=== PATIENT | male | born 1960 | race Caucasian/White ===

== ENCOUNTER 2020-12-03 08:15 | Outpatient (RCR) | payer OTHER, MEDICAID, SELFPAY ==
--- NOTE | 2020-09-24 13:22 | PT.OIE ---
Current Diagnoses Pain in right shoulder (09/24/20) Past Medical History (Last Updated 12/09/17 @ 21:21 by Erica Sullivan) Seasonal allergies (~1975) Past Surgical History (Last Updated 12/09/17 @ 21:21 by Erica Sullivan) Anesthesia History of colonoscopy (~2015) History of elbow surgery (~2013) History of knee surgery (~1989) Visit Care Team Role Provider Type BEATA Joyce Attending Provider Advanced Assistant Men'S Soccer Coach Family Provider Primary Care Provider Referring Provider Specialty: Family Practice Address: [address] [place] [address] [place], [place], [facility] Email: [email or web address] Initial Evaluation PT-OP-A Visit Information Start: 09/24/20 08:05 Freq: Status: Active Protocol: Document 09/24/20 12:46 HH (Rec: 09/24/20 13:22 HH [email or web address]) Out-Patient Physical Therapy Visit Information Visit Information Visit Type Initial Evaluation Visit Start Time 09:00 Visit Stop Time 09:45 Total Visit Minutes 45 Visit Number 1/15 Number of BUDGET COORDINATOR Visits 0 Evaluation Information Evaluation Date 09/24/20 Precautions Precautions HTN PT-OP-B Current Condition Start: 09/24/20 08:05 Freq: Status: Active Protocol: Document 09/24/20 12:46 HH (Rec: 09/24/20 13:22 HH [email or web address]) Current Condition History of Current Condition Onset Date Feb, 2020 Current Complaints R shoulder panic, limited ROM History of Current Condition Brennen is a 60yo male here for his R shoulder started from February, with no known injury. His pain is 4-6/10 located at anterior part of R shoulder and it radiates down to his biceps occasionally, along with tingling and numbness to R hand. Pt has been having night pain consistently which significantly affects his sleep. He notices his ROM has been getting less especially reaching behind his back. Painful but close to full range with flexion/ abduction. 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 Treatment Goals Patient/Caregiver Goals 1. To regain full ROM of his R shoulder 2. to regain full strength of his R shoulder Current Functional Impairments (Reported) Functional Limitations- ADL's pain while reaching behind his back to art/doff jacket Functional Limitations- Work/School pain with pulling motion during work. Personal Factors Other Personal Factors That May Effect HTN Therapy/Recovery PT-OP-C Subjective Start: 09/24/20 08:05 Freq: Status: Active Protocol: Document 09/24/20 12:46 (Rec: 09/24/20 13:22 [email or web address]) Patient Questionnaires Quick Dash- Upper Extremity Quick Dash UE Score 61.4 Quick Dash UE Impairment 60 to 79% Impaired (Score 60- 79) OP-PT Pain Assessment Location R shoulder Pain Location Details anterior part of R shoulder Scale Used 4-6 Description Aching,Dull Frequency Frequent Variations/Patterns night time Pain Aggravating Factors Position,ADL's,Activity, Exercise Pain Alleviating Factors Inactivity PT-OP-E Functional Tests Start: 09/24/20 08:05 Freq: Status: Active Protocol: Document 09/24/20 12:46 (Rec: 09/24/20 13:22 [email or web address]) Functional Tests Apley's Scratch Test Action 1- Left no pain, WFL Action 1- Right pain at AC joint / GHJ, 75% ROM Action 2- Left T2 Action 2- Right C7 Action 3- Left T10 Action 3- Right L3 with pain PT-OP-F Manual Assessment Start: 09/24/20 08:05 Freq: Status: Active Protocol: Document 09/24/20 12:46 (Rec: 09/24/20 13:22 [email or web address]) Manual Assessments Soft Tissue Assessment Soft Tissue Mobility Assessment significant hypertonicity at R bicep belly, long head tendon mod hypertonicity at Pecs, infraspinatus and teres minor PT-OP-J Posture/Palpation/Skin Start: 09/24/20 08:05 Freq: Status: Active Protocol: Document 09/24/20 12:46 (Rec: 09/24/20 13:22 [email or web address]) Posture Evaluation Position Standing Shoulder Posture (R) Rounded PT-OP-K Range of Motion Start: 09/24/20 08:05 Freq: Status: Active Protocol: Document 09/24/20 12:46 (Rec: 09/24/20 13:22 [email or web address]) Cervical Spine Range of Motion Cervical Spine Active Degrees Comments WFL no pain noted no neurological signs noted. Shoulder Goniometric Range of Motion Shoulder Right Active Testing Position Standing Flexion 160 Extension 35 Abduction 165 External Rotation at 90 degrees 90 Abduction Internal Rotation 65 Comments anterior shoulder pain with extension and internal rotation Left Active Shoulder ROM WFL Yes Testing Position Standing Flexion 180 Extension 40 Abduction 180 External Rotation at 90 degrees 97 Abduction Internal Rotation 80 Shoulder ROM Limitations Shoulder ROM Limitations Soft Tissue Tightness,Pain PT-OP-L Special Tests Start: 09/24/20 08:05 Freq: Status: Active Protocol: Document 09/24/20 12:46 (Rec: 09/24/20 13:22 [email or web address]) Special Tests Cervical Spine Special Tests Foraminal Compression Test Results -veB Spurling's Test Test Results -veB Shoulder Special Tests Telfair Test Test Results +Ve R Grind Labrum Test Results -ve Neer Impingement Test Results +VE B AC Joint Compression Test Results -ve Drop Arm Rotator Cuff Test Results -ve Altamirano Bebeto Impingement Test Results +ve R Empty Can Test Results +ve R Comments slight pain noted Speed's Biceps Test Results +VE R Luna's Biceps Test Results +VE R PT-OP-M Strength Start: 09/24/20 08:05 Freq: Status: Active Protocol: Document 09/24/20 12:46 (Rec: 09/24/20 13:22 [email or web address]) Shoulder Strength Shoulder Manual Muscle Testing Right Flexion 4 Good Extension 4- Good- Abduction (C5) 4- Good- External Rotation 4- Good- Internal Rotation 4- Good- Left Flexion 5 Normal Extension 5 Normal Abduction (C5) 5 Normal Adduction 5 Normal External Rotation 5 Normal Internal Rotation 5 Normal PT-OP-Q Treatments Start: 09/24/20 08:05 Freq: Status: Active Protocol: Document 09/24/20 12:46 (Rec: 09/24/20 13:22 [email or web address]) Therapeutic Exercises Sidelying Exercises open book Side bilateral Reps/Minutes 5 x2 Comments for HEP Manual Therapy Treatment Soft Tissue Mobilization R biceps Body Location muscle belly and bicepital tendon Mobilization Type Myofascial Release,Sustained Pressure,Trigger Point Release Intensity/Depth Moderate Body Position Supine Comments signficiant hypetoncity at R bicep belly PT-OP-T Assessment and Plan Start: 09/24/20 08:05 Freq: Status: Active Protocol: Document 09/24/20 12:46 (Rec: 09/24/20 13:22 [email or web address]) Physical Therapy Assessment Rehab Potential Rehabilitation Potential Excellent Evaluation Complexity Number of Personal Factors/Comorbidities 0 Number of Body Systems Impaired 1-2 Clinical Presentation at Evaluation Stable Impairments Impairments Activity Tolerance,Functional Activities,Functional Mobility ,Pain,Posture,ROM,Soft Tissue Mobility,Strength Goals night pain Impairment pt is having R shoulder pain during sleep Short Term Goal (STG) pt will be able to sleep 3x/ week without being waken up by his R shoulder pain STG Duration 5 weeks Half-Way Goal (LTG) pt will be able to sleep through the entire week consistently without being waken up by his R shoulder pain LTG Duration 10 weeks ROM Impairment pt shows limited ER and IR Short Term Goal (STG) pt will regain 10 degrees of ER and IR to improve his ability to reach behind his back STG Duration 5 weeks Half-Way Goal (LTG) pt will regain 20 degrees of ER and IR to improve his ability to reach behind his back without discomfort LTG Duration 10 weeks quickdash Impairment pt scores 61 on quickdash Short Term Goal (STG) pt will show improvements in mobility and strength to score <50 on quickdash STG Duration 5 weeks Half-Way Goal (LTG) pt will show improvements in mobility and strength to score <30 on quickdash LTG Duration 10 weeks Assessment Summary Assessment Brennen is a 60 yo R hand dominant male here for his R shoulder pain started in February,. Upon assessment , Pt presents R bicipital tendonitis, along with shoulder impingement whose pain is mostly during reaching behind his back, extension and elbow flexion. There;s significant hypertoncity at R biceps belly but moderate for pecs and RTCs. Pt will benefit from skilled therapy to increase his overall ROM, strength, glenoidscapular stability and postural awareness in order for him to be able to complete dressing/ lifting without discomfort. Physical Therapy Plan Frequency and Duration Frequency of Treatment 1x/Week Duration of Treatment 10 weeks Plan of Care Start Date 09/24/20 Plan of Care End Date 12/08/20 Therapeutic Interventions Therapeutic Interventions Home Exercise Program,Joint Mobilizations,Manual Therapy, Neuromuscular Re-education, Patient/Caregiver Education, Self-Care/Home Management,Soft Tissue Mobilization,Taping, Therapeutic Activities, Therapeutic Exercises Modalities Biofeedback,Cold Pack/Ice Massage,Electric Stimulation, Hot Packs,Infrared Therapy, Iontophoresis,Traction- Mechanical,Ultrasound Next Visit Focus/Plan Next Note Type Treatment Note Next Visit Plan sleeper stretch for IR review open book scpa retraction STM on chest, bicep and RTCs
--- NOTE | 2020-09-24 13:22 | PT.OPPOC ---
Physical, Occupational & Speech Therapy At [facility] Current Diagnoses Pain in right shoulder (09/24/20) Visit Care Team Role Provider Type BEATA Joyce Attending Provider Advanced Wire Splicer Family Provider Primary Care Provider Referring Provider Specialty: Family Practice Address: [address] [place] [address], [facility] [place], [address] Email: [email or web address] Plan Of Care PT-OP-T Assessment and Plan Start: 09/24/20 08:05 Freq: Status: Active Protocol: Document 09/24/20 12:46 HH (Rec: 09/24/20 13:22 HH [email or web address]) Physical Therapy Assessment Rehab Potential Rehabilitation Potential Excellent Evaluation Complexity Number of Personal Factors/Comorbidities 0 Number of Body Systems Impaired 1-2 Clinical Presentation at Evaluation Stable Impairments Impairments Activity Tolerance,Functional Activities,Functional Mobility ,Pain,Posture,ROM,Soft Tissue Mobility,Strength Goals night pain Impairment pt is having R shoulder pain during sleep Short Term Goal (STG) pt will be able to sleep 3x/ week without being waken up by his R shoulder pain STG Duration 5 weeks Halfway Goal (LTG) pt will be able to sleep through the entire week consistently without being waken up by his R shoulder pain LTG Duration 10 weeks ROM Impairment pt shows limited ER and IR Short Term Goal (STG) pt will regain 10 degrees of ER and IR to improve his ability to reach behind his back STG Duration 5 weeks Hand Assembler Goal (LTG) pt will regain 20 degrees of ER and IR to improve his ability to reach behind his back without discomfort LTG Duration 10 weeks quickdash Impairment pt scores 61 on quickdash Short Term Goal (STG) pt will show improvements in mobility and strength to score <50 on quickdash STG Duration 5 weeks Halfway Goal (LTG) pt will show improvements in mobility and strength to score <30 on quickdash LTG Duration 10 weeks Assessment Summary Assessment Brennen is a 60 yo R hand dominant male here for his R shoulder pain started in February,. Upon assessment , Pt presents R bicipital tendonitis, along with shoulder impingement whose pain is mostly during reaching behind his back, extension and elbow flexion. There;s significant hypertoncity at R biceps belly but moderate for pecs and RTCs. Pt will benefit from skilled therapy to increase his overall ROM, strength, glenoidscapular stability and postural awareness in order for him to be able to complete dressing/ lifting without discomfort. Physical Therapy Plan Frequency and Duration Frequency of Treatment 1x/Week Duration of Treatment 10 weeks Plan of Care Start Date 09/24/20 Plan of Care End Date 12/08/20 Therapeutic Interventions Therapeutic Interventions Home Exercise Program,Joint Mobilizations,Manual Therapy, Neuromuscular Re-education, Patient/Caregiver Education, Self-Care/Home Management,Soft Tissue Mobilization,Taping, Therapeutic Activities, Therapeutic Exercises Modalities Biofeedback,Cold Pack/Ice Massage,Electric Stimulation, Hot Packs,Infrared Therapy, Iontophoresis,Traction- Mechanical,Ultrasound Next Visit Focus/Plan Next Note Type Treatment Note Next Visit Plan sleeper stretch for IR review open book scpa retraction STM on chest, bicep and RTCs Plan of Care Dates Plan of Care Start Date 09/24/20 Plan of Care End Date 12/08/20 Electronically Signed by: Kaye Kennedy PT 09/24/20 [id number] Please Sign and Return: I have reviewed this Plan of Care and certify that the skilled therapy services above are required to meet the patient?s needs. Physician Signature Date Printed Name and Credentials Clinical Instructor Signature Printed Name and Credentials
--- NOTE | 2020-10-01 10:29 | PT.OTN ---
Current Diagnoses Pain in right shoulder (10/01/20) Physical Therapy Treatment Note PT-OP-A Visit Information Start: 09/24/20 08:05 Freq: Status: Active Protocol: Document 10/01/20 09:40 HH (Rec: 10/01/20 10:29 [id number]) Out-Patient Physical Therapy Visit Information Visit Information Visit Type Treatment Note Visit Start Time 09:45 Visit Stop Time 10:30 Total Visit Minutes 45 Visit Number 2/15 Number of MIXER RUNNER Visits 0 PT-OP-B Current Condition Start: 09/24/20 08:05 Freq: Status: Active Protocol: Document 09/24/20 12:46 HH (Rec: 09/24/20 13:22 HH [email or web address]) Current Condition History of Current Condition Onset Date Feb, 2020 Current Complaints R shoulder panic, limited ROM History of Current Condition Brennen is a 60yo male here for his R shoulder started from February, with no known injury. His pain is 4-6/10 located at anterior part of R shoulder and it radiates down to his biceps occasionally, along with tingling and numbness to R hand. Pt has been having night pain consistently which significantly affects his sleep. He notices his ROM has been getting less especially reaching behind his back. Painful but close to full range with flexion/ abduction. 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 Treatment Goals Patient/Caregiver Goals 1. To regain full ROM of his R shoulder 2. to regain full strength of his R shoulder Current Functional Impairments (Reported) Functional Limitations- ADL's pain while reaching behind his back to art/doff jacket Functional Limitations- Work/School pain with pulling motion during work. Personal Factors Other Personal Factors That May Effect HTN Therapy/Recovery PT-OP-C Subjective Start: 09/24/20 08:05 Freq: Status: Active Protocol: Document 10/01/20 09:40 HH (Rec: 10/01/20 10:29 [id number]) OP-PT Subjective Patient Comments Patient Comments My shoulder feels better after last time but i accidentally pulled my biceps last night from lifting and i feel sore today. Tingling and numbness seem to be better. Patient Reported Progress Improving PT-OP-E Functional Tests Start: 09/24/20 08:05 Freq: Status: Active Protocol: Document 09/24/20 12:46 (Rec: 09/24/20 13:22 [email or web address]) Functional Tests Apley's Scratch Test Action 1- Left no pain, WFL Action 1- Right pain at AC joint / GHJ, 75% ROM Action 2- Left T2 Action 2- Right C7 Action 3- Left T10 Action 3- Right L3 with pain PT-OP-F Manual Assessment Start: 09/24/20 08:05 Freq: Status: Active Protocol: Document 09/24/20 12:46 (Rec: 09/24/20 13:22 [email or web address]) Manual Assessments Soft Tissue Assessment Soft Tissue Mobility Assessment significant hypertonicity at R bicep belly, long head tendon mod hypertonicity at Pecs, infraspinatus and teres minor PT-OP-J Posture/Palpation/Skin Start: 09/24/20 08:05 Freq: Status: Active Protocol: Document 09/24/20 12:46 (Rec: 09/24/20 13:22 [email or web address]) Posture Evaluation Position Standing Shoulder Posture (R) Rounded PT-OP-K Range of Motion Start: 09/24/20 08:05 Freq: Status: Active Protocol: Document 09/24/20 12:46 (Rec: 09/24/20 13:22 [email or web address]) Cervical Spine Range of Motion Cervical Spine Active Degrees Comments WFL no pain noted no neurological signs noted. Shoulder Goniometric Range of Motion Shoulder Right Active Testing Position Standing Flexion 160 Extension 35 Abduction 165 External Rotation at 90 degrees 90 Abduction Internal Rotation 65 Comments anterior shoulder pain with extension and internal rotation Left Active Shoulder ROM WFL Yes Testing Position Standing Flexion 180 Extension 40 Abduction 180 External Rotation at 90 degrees 97 Abduction Internal Rotation 80 Shoulder ROM Limitations Shoulder ROM Limitations Soft Tissue Tightness,Pain PT-OP-L Special Tests Start: 09/24/20 08:05 Freq: Status: Active Protocol: Document 09/24/20 12:46 (Rec: 09/24/20 13:22 [email or web address]) Special Tests Cervical Spine Special Tests Foraminal Compression Test Results -veB Spurling's Test Test Results -veB Shoulder Special Tests [place] Test Test Results +Ve R Grind Labrum Test Results -ve Neer Impingement Test Results +VE B AC Joint Compression Test Results -ve Drop Arm Rotator Cuff Test Results -ve Altamirano Bebeto Impingement Test Results +ve R Empty Can Test Results +ve R Comments slight pain noted Speed's Biceps Test Results +VE R Brettrbrianna's Biceps Test Results +VE R PT-OP-M Strength Start: 09/24/20 08:05 Freq: Status: Active Protocol: Document 09/24/20 12:46 HH (Rec: 09/24/20 13:22 HH [email or web address]) Shoulder Strength Shoulder Manual Muscle Testing Right Flexion 4 Good Extension 4- Good- Abduction (C5) 4- Good- External Rotation 4- Good- Internal Rotation 4- Good- Left Flexion 5 Normal Extension 5 Normal Abduction (C5) 5 Normal Adduction 5 Normal External Rotation 5 Normal Internal Rotation 5 Normal PT-OP-Q Treatments Start: 09/24/20 08:05 Freq: Status: Active Protocol: Document 10/01/20 09:40 HH (Rec: 10/01/20 10:29 [id number]) Therapeutic Exercises Sidelying Exercises sleeper stretch Reps/Minutes 15 sec x 5 Comments for HEP open book Side bilateral Reps/Minutes 5 x2 Comments for HEP Standing Exercises posterior capsule stretch Standing Exercise Name R arm add and IR Side right Reps/Minutes 10 sec x5 Comments for HEP scap retraction Side bilateral Reps/Minutes 10 x2 Comments for HEP Manual Therapy Treatment Soft Tissue Mobilization RTC Mobilization Type Myofascial Release,Sustained Pressure,Trigger Point Release Intensity/Depth Moderate Body Position Sidelying Comments infraspinatus and teresminor pecs Body Location minor and major Mobilization Type Myofascial Release,Sustained Pressure,Trigger Point Release Intensity/Depth Moderate Body Position Supine R biceps Body Location muscle belly and bicepital tendon Mobilization Type Myofascial Release,Sustained Pressure,Trigger Point Release Intensity/Depth Moderate Body Position Supine Comments signficiant hypetoncity at R bicep belly with active flexion and extension PT-OP-T Assessment and Plan Start: 09/24/20 08:05 Freq: Status: Active Protocol: Document 10/01/20 09:40 HH (Rec: 10/01/20 10:29 [email or web address]) Physical Therapy Assessment Goals night pain Impairment pt is having R shoulder pain during sleep Short Term Goal (STG) pt will be able to sleep 3x/ week without being waken up by his R shoulder pain STG Duration 5 weeks Chilling Hood Operator Goal (LTG) pt will be able to sleep through the entire week consistently without being waken up by his R shoulder pain LTG Duration 10 weeks ROM Impairment pt shows limited ER and IR Short Term Goal (STG) pt will regain 10 degrees of ER and IR to improve his ability to reach behind his back STG Duration 5 weeks Chilling Hood Operator Goal (LTG) pt will regain 20 degrees of ER and IR to improve his ability to reach behind his back without discomfort LTG Duration 10 weeks quickdash Impairment pt scores 61 on quickdash Short Term Goal (STG) pt will show improvements in mobility and strength to score <50 on quickdash STG Duration 5 weeks Chilling Hood Operator Goal (LTG) pt will show improvements in mobility and strength to score <30 on quickdash LTG Duration 10 weeks Assessment Summary Assessment pt reports improved symptoms since last visit but he strained his biceps yesterday from lifting. Pt eneida session good with focus on manual therapy. Added open book, scap retraction, sleeper stretch and posterior capsule stretch Physical Therapy Plan Frequency and Duration Frequency of Treatment 1x/Week Duration of Treatment 10 weeks Plan of Care Start Date 09/24/20 Plan of Care End Date 12/08/20 Therapeutic Interventions Therapeutic Interventions Home Exercise Program,Joint Mobilizations,Manual Therapy, Neuromuscular Re-education, Patient/Caregiver Education, Self-Care/Home Management,Soft Tissue Mobilization,Taping, Therapeutic Activities, Therapeutic Exercises Modalities Biofeedback,Cold Pack/Ice Massage,Electric Stimulation, Hot Packs,Infrared Therapy, Iontophoresis,Traction- Mechanical,Ultrasound Next Visit Focus/Plan Next Note Type Treatment Note Next Visit Plan sleeper stretch for IR review open book scpa retraction STM on chest, bicep and RTCs
--- NOTE | 2020-10-08 10:33 | PT.OTN ---
Current Diagnoses Pain in right shoulder (10/08/20) Physical Therapy Treatment Note PT-OP-A Visit Information Start: 09/24/20 08:05 Freq: Status: Active Protocol: Document 10/08/20 10:30 OF (Rec: 10/08/20 10:33 OF [email or web address]) Out-Patient Physical Therapy Visit Information Visit Information Visit Type Treatment Note Visit Start Time 10:00 Visit Stop Time 10:30 Total Visit Minutes 30 Visit Number 3/15 Number of SECURITY AUDITOR Visits 0 Evaluation Information Evaluation Date 09/24/20 Precautions Precautions HTN PT-OP-B Current Condition Start: 09/24/20 08:05 Freq: Status: Active Protocol: Document 09/24/20 12:46 HH (Rec: 09/24/20 13:22 HH [email or web address]) Current Condition History of Current Condition Onset Date Feb, 2020 Current Complaints R shoulder panic, limited ROM History of Current Condition Brennen is a 60yo male here for his R shoulder started from February, with no known injury. His pain is 4-6/10 located at anterior part of R shoulder and it radiates down to his biceps occasionally, along with tingling and numbness to R hand. Pt has been having night pain consistently which significantly affects his sleep. He notices his ROM has been getting less especially reaching behind his back. Painful but close to full range with flexion/ abduction. 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 Treatment Goals Patient/Caregiver Goals 1. To regain full ROM of his R shoulder 2. to regain full strength of his R shoulder Current Functional Impairments (Reported) Functional Limitations- ADL's pain while reaching behind his back to art/doff jacket Functional Limitations- Work/School pain with pulling motion during work. Personal Factors Other Personal Factors That May Effect HTN Therapy/Recovery PT-OP-C Subjective Start: 09/24/20 08:05 Freq: Status: Active Protocol: Document 10/08/20 10:30 OF (Rec: 10/08/20 10:33 OF [email or web address]) OP-PT Subjective Patient Comments Patient Comments My shoulder feels the same, because my back hurts. I fell off my work truck which hurt by L side and back Patient Reported Progress Same Patient Questionnaires Quick Dash- Upper Extremity Quick Dash UE Score 61.4 Quick Dash UE Impairment 60 to 79% Impaired (Score 60- 79) OP-PT Pain Assessment Location R shoulder Pain Location Details anterior part of R shoulder Scale Used 4-6 Description Aching,Dull Frequency Frequent Variations/Patterns night time Pain Aggravating Factors Position,ADL's,Activity, Exercise Pain Alleviating Factors Inactivity PT-OP-E Functional Tests Start: 09/24/20 08:05 Freq: Status: Active Protocol: Document 09/24/20 12:46 (Rec: 09/24/20 13:22 [email or web address]) Functional Tests Apley's Scratch Test Action 1- Left no pain, WFL Action 1- Right pain at AC joint / GHJ, 75% ROM Action 2- Left T2 Action 2- Right C7 Action 3- Left T10 Action 3- Right L3 with pain PT-OP-F Manual Assessment Start: 09/24/20 08:05 Freq: Status: Active Protocol: Document 09/24/20 12:46 (Rec: 09/24/20 13:22 [email or web address]) Manual Assessments Soft Tissue Assessment Soft Tissue Mobility Assessment significant hypertonicity at R bicep belly, long head tendon mod hypertonicity at Pecs, infraspinatus and teres minor PT-OP-J Posture/Palpation/Skin Start: 09/24/20 08:05 Freq: Status: Active Protocol: Document 09/24/20 12:46 (Rec: 09/24/20 13:22 [email or web address]) Posture Evaluation Position Standing Shoulder Posture (R) Rounded PT-OP-K Range of Motion Start: 09/24/20 08:05 Freq: Status: Active Protocol: Document 09/24/20 12:46 (Rec: 09/24/20 13:22 [email or web address]) Cervical Spine Range of Motion Cervical Spine Active Degrees Comments WFL no pain noted no neurological signs noted. Shoulder Goniometric Range of Motion Shoulder Right Active Testing Position Standing Flexion 160 Extension 35 Abduction 165 External Rotation at 90 degrees 90 Abduction Internal Rotation 65 Comments anterior shoulder pain with extension and internal rotation Left Active Shoulder ROM WFL Yes Testing Position Standing Flexion 180 Extension 40 Abduction 180 External Rotation at 90 degrees 97 Abduction Internal Rotation 80 Shoulder ROM Limitations Shoulder ROM Limitations Soft Tissue Tightness,Pain PT-OP-L Special Tests Start: 09/24/20 08:05 Freq: Status: Active Protocol: Document 09/24/20 12:46 (Rec: 09/24/20 13:22 [email or web address]) Special Tests Cervical Spine Special Tests Foraminal Compression Test Results -veB Spurling's Test Test Results -veB Shoulder Special Tests [place] Test Test Results +Ve R Grind Labrum Test Results -ve Neer Impingement Test Results +VE B AC Joint Compression Test Results -ve Drop Arm Rotator Cuff Test Results -ve Altamirano Bebeto Impingement Test Results +ve R Empty Can Test Results +ve R Comments slight pain noted Speed's Biceps Test Results +VE R Yergaelise's Biceps Test Results +VE R PT-OP-M Strength Start: 09/24/20 08:05 Freq: Status: Active Protocol: Document 09/24/20 12:46 HH (Rec: 09/24/20 13:22 [email or web address]) Shoulder Strength Shoulder Manual Muscle Testing Right Flexion 4 Good Extension 4- Good- Abduction (C5) 4- Good- External Rotation 4- Good- Internal Rotation 4- Good- Left Flexion 5 Normal Extension 5 Normal Abduction (C5) 5 Normal Adduction 5 Normal External Rotation 5 Normal Internal Rotation 5 Normal PT-OP-Q Treatments Start: 09/24/20 08:05 Freq: Status: Active Protocol: Document 10/08/20 10:30 OF (Rec: 10/08/20 10:33 OF [email or web address]) Therapeutic Exercises Sidelying Exercises sleeper stretch Reps/Minutes 15 sec x 5 Comments for HEP open book Side bilateral Reps/Minutes 5 x3 Comments for HEP Standing Exercises 1 Standing Exercise Name assisted int rotation behind back Side right Equipment Used stick Reps/Minutes 30 sec x5 posterior capsule stretch Standing Exercise Name R arm add and IR Side right Reps/Minutes 10 sec x5 Comments for HEP scap retraction Side bilateral Reps/Minutes 10 x2 Comments for HEP Manual Therapy Treatment Soft Tissue Mobilization RTC Mobilization Type Myofascial Release,Sustained Pressure,Trigger Point Release Intensity/Depth Moderate Body Position Sidelying Comments infraspinatus and teresminor pecs Body Location minor and major Mobilization Type Myofascial Release,Sustained Pressure,Trigger Point Release Intensity/Depth Moderate Body Position Supine R biceps Body Location muscle belly and bicepital tendon Mobilization Type Sustained Pressure,Trigger Point Release PT-OP-T Assessment and Plan Start: 09/24/20 08:05 Freq: Status: Active Protocol: Document 10/08/20 10:30 OF (Rec: 10/08/20 10:33 OF [email or web address]) Physical Therapy Assessment Rehab Potential Rehabilitation Potential Excellent Evaluation Complexity Number of Personal Factors/Comorbidities 0 Number of Body Systems Impaired 1-2 Clinical Presentation at Evaluation Stable Impairments Impairments Activity Tolerance,Functional Activities,Functional Mobility ,Pain,Posture,ROM,Soft Tissue Mobility,Strength Goals night pain Impairment pt is having R shoulder pain during sleep Short Term Goal (STG) pt will be able to sleep 3x/ week without being waken up by his R shoulder pain STG Duration 5 weeks Ward Helper Goal (LTG) pt will be able to sleep through the entire week consistently without being waken up by his R shoulder pain LTG Duration 10 weeks ROM Impairment pt shows limited ER and IR Short Term Goal (STG) pt will regain 10 degrees of ER and IR to improve his ability to reach behind his back STG Duration 5 weeks Ward Helper Goal (LTG) pt will regain 20 degrees of ER and IR to improve his ability to reach behind his back without discomfort LTG Duration 10 weeks quickdash Impairment pt scores 61 on quickdash Short Term Goal (STG) pt will show improvements in mobility and strength to score <50 on quickdash STG Duration 5 weeks Ward Helper Goal (LTG) pt will show improvements in mobility and strength to score <30 on quickdash LTG Duration 10 weeks Assessment Summary Assessment pt reports pain after falling at work. Shoulder is the same Pt requires redirection for sleeper stretch and open book. Good with scap retractions. Added AAROM internal rotation with extension using stick while seated/standing. Reduced tone in pecs/bieps Physical Therapy Plan Frequency and Duration Frequency of Treatment 1x/Week Duration of Treatment 10 weeks Plan of Care Start Date 09/24/20 Plan of Care End Date 12/08/20 Therapeutic Interventions Therapeutic Interventions Home Exercise Program,Joint Mobilizations,Manual Therapy, Neuromuscular Re-education, Patient/Caregiver Education, Self-Care/Home Management,Soft Tissue Mobilization,Taping, Therapeutic Activities, Therapeutic Exercises Modalities Biofeedback,Cold Pack/Ice Massage,Electric Stimulation, Hot Packs,Infrared Therapy, Iontophoresis,Traction- Mechanical,Ultrasound Next Visit Focus/Plan Next Note Type Treatment Note Next Visit Plan sleeper stretch for IR ( passive) pt doing both active review open book (active) scap retraction assisted IR and extension
--- NOTE | 2020-10-15 10:33 | PT.OTN ---
Current Diagnoses Pain in right shoulder (10/15/20) Physical Therapy Treatment Note PT-OP-A Visit Information Start: 09/24/20 08:05 Freq: Status: Active Protocol: Document 10/15/20 09:47 HH (Rec: 10/15/20 10:33 [id number]) Out-Patient Physical Therapy Visit Information Visit Information Visit Type Treatment Note Visit Start Time 09:47 Visit Stop Time 10:30 Total Visit Minutes 43 Visit Number 4/15 Number of RECTIFICATION PRINTER Visits 0 PT-OP-B Current Condition Start: 09/24/20 08:05 Freq: Status: Active Protocol: Document 09/24/20 12:46 HH (Rec: 09/24/20 13:22 [email or web address]) Current Condition History of Current Condition Onset Date Feb, 2020 Current Complaints R shoulder panic, limited ROM History of Current Condition Brennen is a 60yo male here for his R shoulder started from February, with no known injury. His pain is 4-6/10 located at anterior part of R shoulder and it radiates down to his biceps occasionally, along with tingling and numbness to R hand. Pt has been having night pain consistently which significantly affects his sleep. He notices his ROM has been getting less especially reaching behind his back. Painful but close to full range with flexion/ abduction. 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 Treatment Goals Patient/Caregiver Goals 1. To regain full ROM of his R shoulder 2. to regain full strength of his R shoulder Current Functional Impairments (Reported) Functional Limitations- ADL's pain while reaching behind his back to art/doff jacket Functional Limitations- Work/School pain with pulling motion during work. Personal Factors Other Personal Factors That May Effect HTN Therapy/Recovery PT-OP-C Subjective Start: 09/24/20 08:05 Freq: Status: Active Protocol: Document 10/15/20 09:47 HH (Rec: 10/15/20 10:33 [id number]) OP-PT Subjective Patient Comments Patient Comments I was doing pretty good lately but then my bicep has been sore this week and i dont know why since i didnt do anything out ordinary. Patient Reported Progress Same PT-OP-E Functional Tests Start: 09/24/20 08:05 Freq: Status: Active Protocol: Document 09/24/20 12:46 (Rec: 09/24/20 13:22 [email or web address]) Functional Tests Apley's Scratch Test Action 1- Left no pain, WFL Action 1- Right pain at AC joint / GHJ, 75% ROM Action 2- Left T2 Action 2- Right C7 Action 3- Left T10 Action 3- Right L3 with pain PT-OP-F Manual Assessment Start: 09/24/20 08:05 Freq: Status: Active Protocol: Document 09/24/20 12:46 (Rec: 09/24/20 13:22 [email or web address]) Manual Assessments Soft Tissue Assessment Soft Tissue Mobility Assessment significant hypertonicity at R bicep belly, long head tendon mod hypertonicity at Pecs, infraspinatus and teres minor PT-OP-J Posture/Palpation/Skin Start: 09/24/20 08:05 Freq: Status: Active Protocol: Document 09/24/20 12:46 (Rec: 09/24/20 13:22 [email or web address]) Posture Evaluation Position Standing Shoulder Posture (R) Rounded PT-OP-K Range of Motion Start: 09/24/20 08:05 Freq: Status: Active Protocol: Document 09/24/20 12:46 (Rec: 09/24/20 13:22 [email or web address]) Cervical Spine Range of Motion Cervical Spine Active Degrees Comments WFL no pain noted no neurological signs noted. Shoulder Goniometric Range of Motion Shoulder Right Active Testing Position Standing Flexion 160 Extension 35 Abduction 165 External Rotation at 90 degrees 90 Abduction Internal Rotation 65 Comments anterior shoulder pain with extension and internal rotation Left Active Shoulder ROM WFL Yes Testing Position Standing Flexion 180 Extension 40 Abduction 180 External Rotation at 90 degrees 97 Abduction Internal Rotation 80 Shoulder ROM Limitations Shoulder ROM Limitations Soft Tissue Tightness,Pain PT-OP-L Special Tests Start: 09/24/20 08:05 Freq: Status: Active Protocol: Document 09/24/20 12:46 (Rec: 09/24/20 13:22 [email or web address]) Special Tests Cervical Spine Special Tests Foraminal Compression Test Results -veB Spurling's Test Test Results -veB Shoulder Special Tests [place] Test Test Results +Ve R Grind Labrum Test Results -ve Neer Impingement Test Results +VE B AC Joint Compression Test Results -ve Drop Arm Rotator Cuff Test Results -ve [place]eto Impingement Test Results +ve R Empty Can Test Results +ve R Comments slight pain noted Speed's Biceps Test Results +VE R Luna's Biceps Test Results +VE R PT-OP-M Strength Start: 09/24/20 08:05 Freq: Status: Active Protocol: Document 09/24/20 12:46 HH (Rec: 09/24/20 13:22 HH [email or web address]) Shoulder Strength Shoulder Manual Muscle Testing Right Flexion 4 Good Extension 4- Good- Abduction (C5) 4- Good- External Rotation 4- Good- Internal Rotation 4- Good- Left Flexion 5 Normal Extension 5 Normal Abduction (C5) 5 Normal Adduction 5 Normal External Rotation 5 Normal Internal Rotation 5 Normal PT-OP-Q Treatments Start: 09/24/20 08:05 Freq: Status: Active Protocol: Document 10/15/20 09:47 HH (Rec: 10/15/20 10:33 [id number]) Cardio Equipment Upper Body Ergometer (UBE) Duration (Minutes) 5 Other 30 fwd, bwd, portable UBE Therapeutic Exercises Supine Exercises shoulder ER Equipment Used PVC Reps/Minutes 10 x 2 Comments R= 50% ROM less than L Sidelying Exercises open book Side bilateral Reps/Minutes 5 x2 Comments cues on thoracic rotation Standing Exercises 1 Standing Exercise Name assisted int rotation behind back Side right Equipment Used stick Reps/Minutes 30 sec x5 posterior capsule stretch Standing Exercise Name R arm add and IR Side right Reps/Minutes 10 sec x5 Comments for HEP scap retraction Side bilateral Reps/Minutes 10 x2 Comments for HEP Manual Therapy Treatment Soft Tissue Mobilization RTC Mobilization Type Myofascial Release,Sustained Pressure,Trigger Point Release Intensity/Depth Moderate Body Position Sidelying Comments slight tenderness at teresminor pecs Body Location minor and major Mobilization Type Myofascial Release,Sustained Pressure,Trigger Point Release Intensity/Depth Moderate Body Position Supine R biceps Body Location muscle belly and bicepital tendon Mobilization Type Sustained Pressure,Trigger Point Release Comments significant toncity at distal bicep PT-OP-T Assessment and Plan Start: 09/24/20 08:05 Freq: Status: Active Protocol: Document 10/15/20 09:47 HH (Rec: 10/15/20 10:33 [email or web address]) Physical Therapy Assessment Rehab Potential Rehabilitation Potential Excellent Evaluation Complexity Number of Personal Factors/Comorbidities 0 Number of Body Systems Impaired 1-2 Clinical Presentation at Evaluation Stable Impairments Impairments Activity Tolerance,Functional Activities,Functional Mobility ,Pain,Posture,ROM,Soft Tissue Mobility,Strength Goals night pain Impairment pt is having R shoulder pain during sleep Short Term Goal (STG) pt will be able to sleep 3x/ week without being waken up by his R shoulder pain STG Duration 5 weeks Sandwich Board Carrier Goal (LTG) pt will be able to sleep through the entire week consistently without being waken up by his R shoulder pain LTG Duration 10 weeks ROM Impairment pt shows limited ER and IR Short Term Goal (STG) pt will regain 10 degrees of ER and IR to improve his ability to reach behind his back STG Duration 5 weeks Residential Goal (LTG) pt will regain 20 degrees of ER and IR to improve his ability to reach behind his back without discomfort LTG Duration 10 weeks quickdash Impairment pt scores 61 on quickdash Short Term Goal (STG) pt will show improvements in mobility and strength to score <50 on quickdash STG Duration 5 weeks Residential Goal (LTG) pt will show improvements in mobility and strength to score <30 on quickdash LTG Duration 10 weeks Assessment Summary Assessment Pt reports improved pain at top of R shoulder but persistent pain at bicep area. He still has difficulty reaching behind his back and like to use shoulder hike for overhead movements. Reviewed all HEP and added supine ER today and pt eneida session well. Physical Therapy Plan Frequency and Duration Frequency of Treatment 1x/Week Duration of Treatment 10 weeks Plan of Care Start Date 09/24/20 Plan of Care End Date 12/08/20 Therapeutic Interventions Therapeutic Interventions Home Exercise Program,Joint Mobilizations,Manual Therapy, Neuromuscular Re-education, Patient/Caregiver Education, Self-Care/Home Management,Soft Tissue Mobilization,Taping, Therapeutic Activities, Therapeutic Exercises Modalities Biofeedback,Cold Pack/Ice Massage,Electric Stimulation, Hot Packs,Infrared Therapy, Iontophoresis,Traction- Mechanical,Ultrasound Next Visit Focus/Plan Next Note Type Treatment Note Next Visit Plan sleeper stretch for IR ( passive) pt doing both active review open book (active) scap retraction assisted IR and extension
--- NOTE | 2020-10-22 10:34 | PT.OTN ---
Current Diagnoses Pain in right shoulder (10/22/20) Physical Therapy Treatment Note PT-OP-A Visit Information Start: 09/24/20 08:05 Freq: Status: Active Protocol: Document 10/22/20 09:46 HH (Rec: 10/22/20 10:34 [id number]) Out-Patient Physical Therapy Visit Information Visit Information Visit Type Treatment Note Visit Start Time 09:46 Visit Stop Time 10:30 Total Visit Minutes 44 Visit Number 09/21 Number of SHORT ORDER FRY COOK Visits 0 PT-OP-B Current Condition Start: 09/24/20 08:05 Freq: Status: Active Protocol: Document 09/24/20 12:46 HH (Rec: 09/24/20 13:22 [email or web address]) Current Condition History of Current Condition Onset Date Feb, 2020 Current Complaints R shoulder panic, limited ROM History of Current Condition Brennen is a 60yo male here for his R shoulder started from February, with no known injury. His pain is 4-6/10 located at anterior part of R shoulder and it radiates down to his biceps occasionally, along with tingling and numbness to R hand. Pt has been having night pain consistently which significantly affects his sleep. He notices his ROM has been getting less especially reaching behind his back. Painful but close to full range with flexion/ abduction. 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 Treatment Goals Patient/Caregiver Goals 1. To regain full ROM of his R shoulder 2. to regain full strength of his R shoulder Current Functional Impairments (Reported) Functional Limitations- ADL's pain while reaching behind his back to art/doff jacket Functional Limitations- Work/School pain with pulling motion during work. Personal Factors Other Personal Factors That May Effect HTN Therapy/Recovery PT-OP-C Subjective Start: 09/24/20 08:05 Freq: Status: Active Protocol: Document 10/22/20 09:46 HH (Rec: 10/22/20 10:34 [id number]) OP-PT Subjective Patient Comments Patient Comments Im not doing not to bad this week. the towel stretch behind my back is really irritating my front of the shoulder. Patient Reported Progress Same PT-OP-E Functional Tests Start: 09/24/20 08:05 Freq: Status: Active Protocol: Document 09/24/20 12:46 HH (Rec: 09/24/20 13:22 [email or web address]) Functional Tests Apley's Scratch Test Action 1- Left no pain, WFL Action 1- Right pain at AC joint / GHJ, 75% ROM Action 2- Left T2 Action 2- Right C7 Action 3- Left T10 Action 3- Right L3 with pain PT-OP-F Manual Assessment Start: 09/24/20 08:05 Freq: Status: Active Protocol: Document 09/24/20 12:46 (Rec: 09/24/20 13:22 [email or web address]) Manual Assessments Soft Tissue Assessment Soft Tissue Mobility Assessment significant hypertonicity at R bicep belly, long head tendon mod hypertonicity at Pecs, infraspinatus and teres minor PT-OP-J Posture/Palpation/Skin Start: 09/24/20 08:05 Freq: Status: Active Protocol: Document 09/24/20 12:46 (Rec: 09/24/20 13:22 [email or web address]) Posture Evaluation Position Standing Shoulder Posture (R) Rounded PT-OP-K Range of Motion Start: 09/24/20 08:05 Freq: Status: Active Protocol: Document 09/24/20 12:46 (Rec: 09/24/20 13:22 [email or web address]) Cervical Spine Range of Motion Cervical Spine Active Degrees Comments WFL no pain noted no neurological signs noted. Shoulder Goniometric Range of Motion Shoulder Right Active Testing Position Standing Flexion 160 Extension 35 Abduction 165 External Rotation at 90 degrees 90 Abduction Internal Rotation 65 Comments anterior shoulder pain with extension and internal rotation Left Active Shoulder ROM WFL Yes Testing Position Standing Flexion 180 Extension 40 Abduction 180 External Rotation at 90 degrees 97 Abduction Internal Rotation 80 Shoulder ROM Limitations Shoulder ROM Limitations Soft Tissue Tightness,Pain PT-OP-L Special Tests Start: 09/24/20 08:05 Freq: Status: Active Protocol: Document 09/24/20 12:46 (Rec: 09/24/20 13:22 [email or web address]) Special Tests Cervical Spine Special Tests Foraminal Compression Test Results -veB Spurling's Test Test Results -veB Shoulder Special Tests [place] Test Test Results +Ve R Grind Labrum Test Results -ve Neer Impingement Test Results +VE B AC Joint Compression Test Results -ve Drop Arm Rotator Cuff Test Results -ve [place] Impingement Test Results +ve R Empty Can Test Results +ve R Comments slight pain noted Speed's Biceps Test Results +VE R Luna's Biceps Test Results +VE R PT-OP-M Strength Start: 09/24/20 08:05 Freq: Status: Active Protocol: Document 09/24/20 12:46 (Rec: 09/24/20 13:22 [email or web address]) Shoulder Strength Shoulder Manual Muscle Testing Right Flexion 4 Good Extension 4- Good- Abduction (C5) 4- Good- External Rotation 4- Good- Internal Rotation 4- Good- Left Flexion 5 Normal Extension 5 Normal Abduction (C5) 5 Normal Adduction 5 Normal External Rotation 5 Normal Internal Rotation 5 Normal PT-OP-Q Treatments Start: 09/24/20 08:05 Freq: Status: Active Protocol: Document 10/22/20 09:46 (Rec: 10/22/20 10:34 [id number]) Therapeutic Exercises Supine Exercises shoulder ER Equipment Used PVC Reps/Minutes 10 x 2 Comments R= 25% ROM less than L Sidelying Exercises open book Side bilateral Reps/Minutes 5 x2 Comments no cues needed Standing Exercises shoulder ER Side bilateral Equipment Used level 1 band Reps/Minutes 10 x 2 Comments no pain noted., for HEP posterior capsule stretch Standing Exercise Name R arm add and IR Side right Reps/Minutes 10 sec x5 Comments review with him today. Manual Therapy Treatment Soft Tissue Mobilization RTC Mobilization Type Myofascial Release,Sustained Pressure,Trigger Point Release Intensity/Depth Moderate Body Position Sidelying Comments minimal tenderness at teresminor pecs Body Location minor and major Mobilization Type Myofascial Release,Sustained Pressure,Trigger Point Release Intensity/Depth Moderate Body Position Supine R biceps Body Location muscle belly and bicepital tendon Mobilization Type Sustained Pressure,Trigger Point Release Comments significant toncity at distal bicep PT-OP-T Assessment and Plan Start: 09/24/20 08:05 Freq: Status: Active Protocol: Document 10/22/20 09:46 (Rec: 10/22/20 10:34 [id number]) Physical Therapy Assessment Goals night pain Impairment pt is having R shoulder pain during sleep Short Term Goal (STG) pt will be able to sleep 3x/ week without being waken up by his R shoulder pain STG Duration 5 weeks Radio Equipment Installer Goal (LTG) pt will be able to sleep through the entire week consistently without being waken up by his R shoulder pain LTG Duration 10 weeks ROM Impairment pt shows limited ER and IR Short Term Goal (STG) pt will regain 10 degrees of ER and IR to improve his ability to reach behind his back STG Duration 5 weeks Radio Equipment Installer Goal (LTG) pt will regain 20 degrees of ER and IR to improve his ability to reach behind his back without discomfort LTG Duration 10 weeks quickdash Impairment pt scores 61 on quickdash Short Term Goal (STG) pt will show improvements in mobility and strength to score <50 on quickdash STG Duration 5 weeks Radio Equipment Installer Goal (LTG) pt will show improvements in mobility and strength to score <30 on quickdash LTG Duration 10 weeks Assessment Summary Assessment Pt hasnt shown progress over the past week with pain during shoulder IR stretch. updated his HEP with shoulder ER focused with ROM and strengthening therex. Pt did not report of irritation during session. Also educated him to use ice if there's pain . Physical Therapy Plan Frequency and Duration Frequency of Treatment 1x/Week Duration of Treatment 10 weeks Plan of Care Start Date 09/24/20 Plan of Care End Date 12/08/20 Therapeutic Interventions Therapeutic Interventions Home Exercise Program,Joint Mobilizations,Manual Therapy, Neuromuscular Re-education, Patient/Caregiver Education, Self-Care/Home Management,Soft Tissue Mobilization,Taping, Therapeutic Activities, Therapeutic Exercises Modalities Biofeedback,Cold Pack/Ice Massage,Electric Stimulation, Hot Packs,Infrared Therapy, Iontophoresis,Traction- Mechanical,Ultrasound Next Visit Focus/Plan Next Note Type Treatment Note Next Visit Plan sleeper stretch for IR ( passive) pt doing both active review open book (active) scap retraction assisted IR and extension
--- NOTE | 2020-10-29 11:47 | PT.OTN ---
Current Diagnoses Pain in right shoulder (10/29/20) Physical Therapy Treatment Note PT-OP-A Visit Information Start: 09/24/20 08:05 Freq: Status: Active Protocol: Document 10/29/20 09:47 HH (Rec: 10/29/20 10:34 [id number]) Out-Patient Physical Therapy Visit Information Visit Information Visit Type Treatment Note Visit Start Time 09:46 Visit Stop Time 10:30 Total Visit Minutes 44 Visit Number 6 Number of YARN COMBER Visits 0 PT-OP-B Current Condition Start: 09/24/20 08:05 Freq: Status: Active Protocol: Document 09/24/20 12:46 HH (Rec: 09/24/20 13:22 [email or web address]) Current Condition History of Current Condition Onset Date Feb, 2020 Current Complaints R shoulder panic, limited ROM History of Current Condition Brennen is a 60yo male here for his R shoulder started from February, with no known injury. His pain is 4-6/10 located at anterior part of R shoulder and it radiates down to his biceps occasionally, along with tingling and numbness to R hand. Pt has been having night pain consistently which significantly affects his sleep. He notices his ROM has been getting less especially reaching behind his back. Painful but close to full range with flexion/ abduction. 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 Treatment Goals Patient/Caregiver Goals 1. To regain full ROM of his R shoulder 2. to regain full strength of his R shoulder Current Functional Impairments (Reported) Functional Limitations- ADL's pain while reaching behind his back to art/doff jacket Functional Limitations- Work/School pain with pulling motion during work. Personal Factors Other Personal Factors That May Effect HTN Therapy/Recovery PT-OP-C Subjective Start: 09/24/20 08:05 Freq: Status: Active Protocol: Document 10/29/20 09:47 HH (Rec: 10/29/20 10:34 [id number]) OP-PT Subjective Patient Comments Patient Comments Im able to sleep better, with a bit tingling and numnbness. However, the past few days started acting up again but not bad Patient Reported Progress Improving PT-OP-E Functional Tests Start: 09/24/20 08:05 Freq: Status: Active Protocol: Document 09/24/20 12:46 HH (Rec: 09/24/20 13:22 [email or web address]) Functional Tests Apley's Scratch Test Action 1- Left no pain, WFL Action 1- Right pain at AC joint / GHJ, 75% ROM Action 2- Left T2 Action 2- Right C7 Action 3- Left T10 Action 3- Right L3 with pain PT-OP-F Manual Assessment Start: 09/24/20 08:05 Freq: Status: Active Protocol: Document 09/24/20 12:46 (Rec: 09/24/20 13:22 [email or web address]) Manual Assessments Soft Tissue Assessment Soft Tissue Mobility Assessment significant hypertonicity at R bicep belly, long head tendon mod hypertonicity at Pecs, infraspinatus and teres minor PT-OP-J Posture/Palpation/Skin Start: 09/24/20 08:05 Freq: Status: Active Protocol: Document 09/24/20 12:46 (Rec: 09/24/20 13:22 [email or web address]) Posture Evaluation Position Standing Shoulder Posture (R) Rounded PT-OP-K Range of Motion Start: 09/24/20 08:05 Freq: Status: Active Protocol: Document 09/24/20 12:46 (Rec: 09/24/20 13:22 [email or web address]) Cervical Spine Range of Motion Cervical Spine Active Degrees Comments WFL no pain noted no neurological signs noted. Shoulder Goniometric Range of Motion Shoulder Right Active Testing Position Standing Flexion 160 Extension 35 Abduction 165 External Rotation at 90 degrees 90 Abduction Internal Rotation 65 Comments anterior shoulder pain with extension and internal rotation Left Active Shoulder ROM WFL Yes Testing Position Standing Flexion 180 Extension 40 Abduction 180 External Rotation at 90 degrees 97 Abduction Internal Rotation 80 Shoulder ROM Limitations Shoulder ROM Limitations Soft Tissue Tightness,Pain PT-OP-L Special Tests Start: 09/24/20 08:05 Freq: Status: Active Protocol: Document 09/24/20 12:46 (Rec: 09/24/20 13:22 [email or web address]) Special Tests Cervical Spine Special Tests Foraminal Compression Test Results -veB Spurling's Test Test Results -veB Shoulder Special Tests [place] Test Test Results +Ve R Grind Labrum Test Results -ve Neer Impingement Test Results +VE B AC Joint Compression Test Results -ve Drop Arm Rotator Cuff Test Results -ve [place] Impingement Test Results +ve R Empty Can Test Results +ve R Comments slight pain noted Speed's Biceps Test Results +VE R Luna's Biceps Test Results +VE R PT-OP-M Strength Start: 09/24/20 08:05 Freq: Status: Active Protocol: Document 09/24/20 12:46 HH (Rec: 09/24/20 13:22 HH [email or web address]) Shoulder Strength Shoulder Manual Muscle Testing Right Flexion 4 Good Extension 4- Good- Abduction (C5) 4- Good- External Rotation 4- Good- Internal Rotation 4- Good- Left Flexion 5 Normal Extension 5 Normal Abduction (C5) 5 Normal Adduction 5 Normal External Rotation 5 Normal Internal Rotation 5 Normal PT-OP-Q Treatments Start: 09/24/20 08:05 Freq: Status: Active Protocol: Document 10/29/20 09:47 HH (Rec: 10/29/20 10:34 [email or web address]) Therapeutic Exercises Supine Exercises shoulder ER Equipment Used PVC Reps/Minutes 10 x 2 Comments R= 25% ROM less than L Standing Exercises median nerve glide Side bilateral Reps/Minutes 8 mins Comments with head SB shoulder ER Side bilateral Equipment Used level 1 band Reps/Minutes 10 x 2 Comments no pain noted., for HEP Manual Therapy Treatment Soft Tissue Mobilization RTC Mobilization Type Myofascial Release,Sustained Pressure,Trigger Point Release Intensity/Depth Moderate Body Position Sidelying Comments minimal tenderness at teresminor pecs Body Location minor and major Mobilization Type Myofascial Release,Sustained Pressure,Trigger Point Release Intensity/Depth Moderate Body Position Supine Comments reduced tonicty noted. R biceps Body Location muscle belly and bicepital tendon Mobilization Type Sustained Pressure,Trigger Point Release Comments reduced toncity at distal bicep PT-OP-T Assessment and Plan Start: 09/24/20 08:05 Freq: Status: Active Protocol: Document 10/29/20 09:47 HH (Rec: 10/29/20 10:34 [id number]) Physical Therapy Assessment Goals night pain Impairment pt is having R shoulder pain during sleep Short Term Goal (STG) pt will be able to sleep 3x/ week without being waken up by his R shoulder pain STG Duration 5 weeks Long-Term Goal (LTG) pt will be able to sleep through the entire week consistently without being waken up by his R shoulder pain LTG Duration 10 weeks ROM Impairment pt shows limited ER and IR Short Term Goal (STG) pt will regain 10 degrees of ER and IR to improve his ability to reach behind his back STG Duration 5 weeks Long-Term Goal (LTG) pt will regain 20 degrees of ER and IR to improve his ability to reach behind his back without discomfort LTG Duration 10 weeks quickdash Impairment pt scores 61 on quickdash Short Term Goal (STG) pt will show improvements in mobility and strength to score <50 on quickdash STG Duration 5 weeks Long-Term Goal (LTG) pt will show improvements in mobility and strength to score <30 on quickdash LTG Duration 10 weeks Assessment Summary Assessment Pt shows improved ROM and pain . Added median nerve glide with head SB and pec door stretch. Will address shoulder IR stretch next week Physical Therapy Plan Frequency and Duration Frequency of Treatment 1x/Week Duration of Treatment 10 weeks Plan of Care Start Date 09/24/20 Plan of Care End Date 12/08/20 Therapeutic Interventions Therapeutic Interventions Home Exercise Program,Joint Mobilizations,Manual Therapy, Neuromuscular Re-education, Patient/Caregiver Education, Self-Care/Home Management,Soft Tissue Mobilization,Taping, Therapeutic Activities, Therapeutic Exercises Modalities Biofeedback,Cold Pack/Ice Massage,Electric Stimulation, Hot Packs,Infrared Therapy, Iontophoresis,Traction- Mechanical,Ultrasound Next Visit Focus/Plan Next Note Type Treatment Note Next Visit Plan sleeper stretch for IR ( passive) pt doing both active review open book (active) scap retraction assisted IR and extension
--- NOTE | 2020-11-05 10:34 | PT.OTN ---
Current Diagnoses Pain in right shoulder (11/05/20) Physical Therapy Treatment Note PT-OP-A Visit Information Start: 09/24/20 08:05 Freq: Status: Active Protocol: Document 11/05/20 09:39 HH (Rec: 11/05/20 10:34 [id number]) Out-Patient Physical Therapy Visit Information Visit Information Visit Type Treatment Note Visit Start Time 09:46 Visit Stop Time 10:30 Total Visit Minutes 44 Visit Number 7/15 Number of FELT PAD CUTTER Visits 0 PT-OP-B Current Condition Start: 09/24/20 08:05 Freq: Status: Active Protocol: Document 09/24/20 12:46 HH (Rec: 09/24/20 13:22 [email or web address]) Current Condition History of Current Condition Onset Date Feb, 2020 Current Complaints R shoulder panic, limited ROM History of Current Condition Brennen is a 60yo male here for his R shoulder started from February, with no known injury. His pain is 4-6/10 located at anterior part of R shoulder and it radiates down to his biceps occasionally, along with tingling and numbness to R hand. Pt has been having night pain consistently which significantly affects his sleep. He notices his ROM has been getting less especially reaching behind his back. Painful but close to full range with flexion/ abduction. 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 Treatment Goals Patient/Caregiver Goals 1. To regain full ROM of his R shoulder 2. to regain full strength of his R shoulder Current Functional Impairments (Reported) Functional Limitations- ADL's pain while reaching behind his back to art/doff jacket Functional Limitations- Work/School pain with pulling motion during work. Personal Factors Other Personal Factors That May Effect HTN Therapy/Recovery PT-OP-C Subjective Start: 09/24/20 08:05 Freq: Status: Active Protocol: Document 11/05/20 09:39 HH (Rec: 11/05/20 10:34 [id number]) OP-PT Subjective Patient Comments Patient Comments My tingling and numbness have been less since i tried the nerve glide. I got a little sore early last week then i felt pretty good until yesterday. I did something jarring work which gave that jolting sensation to my shoulder. But its not as bad as before. Patient Reported Progress Improving PT-OP-E Functional Tests Start: 09/24/20 08:05 Freq: Status: Active Protocol: Document 09/24/20 12:46 (Rec: 09/24/20 13:22 [email or web address]) Functional Tests Apley's Scratch Test Action 1- Left no pain, WFL Action 1- Right pain at AC joint / GHJ, 75% ROM Action 2- Left T2 Action 2- Right C7 Action 3- Left T10 Action 3- Right L3 with pain PT-OP-F Manual Assessment Start: 09/24/20 08:05 Freq: Status: Active Protocol: Document 09/24/20 12:46 (Rec: 09/24/20 13:22 [email or web address]) Manual Assessments Soft Tissue Assessment Soft Tissue Mobility Assessment significant hypertonicity at R bicep belly, long head tendon mod hypertonicity at Pecs, infraspinatus and teres minor PT-OP-J Posture/Palpation/Skin Start: 09/24/20 08:05 Freq: Status: Active Protocol: Document 09/24/20 12:46 (Rec: 09/24/20 13:22 [email or web address]) Posture Evaluation Position Standing Shoulder Posture (R) Rounded PT-OP-K Range of Motion Start: 09/24/20 08:05 Freq: Status: Active Protocol: Document 09/24/20 12:46 (Rec: 09/24/20 13:22 [email or web address]) Cervical Spine Range of Motion Cervical Spine Active Degrees Comments WFL no pain noted no neurological signs noted. Shoulder Goniometric Range of Motion Shoulder Right Active Testing Position Standing Flexion 160 Extension 35 Abduction 165 External Rotation at 90 degrees 90 Abduction Internal Rotation 65 Comments anterior shoulder pain with extension and internal rotation Left Active Shoulder ROM WFL Yes Testing Position Standing Flexion 180 Extension 40 Abduction 180 External Rotation at 90 degrees 97 Abduction Internal Rotation 80 Shoulder ROM Limitations Shoulder ROM Limitations Soft Tissue Tightness,Pain PT-OP-L Special Tests Start: 09/24/20 08:05 Freq: Status: Active Protocol: Document 09/24/20 12:46 (Rec: 09/24/20 13:22 [email or web address]) Special Tests Cervical Spine Special Tests Foraminal Compression Test Results -veB Spurling's Test Test Results -veB Shoulder Special Tests [place] Test Test Results +Ve R Grind Labrum Test Results -ve Neer Impingement Test Results +VE B AC Joint Compression Test Results -ve Drop Arm Rotator Cuff Test Results -ve [place] Bebeto Impingement Test Results +ve R Empty Can Test Results +ve R Comments slight pain noted Speed's Biceps Test Results +VE R Yerbrianna's Biceps Test Results +VE R PT-OP-M Strength Start: 09/24/20 08:05 Freq: Status: Active Protocol: Document 09/24/20 12:46 HH (Rec: 09/24/20 13:22 [email or web address]) Shoulder Strength Shoulder Manual Muscle Testing Right Flexion 4 Good Extension 4- Good- Abduction (C5) 4- Good- External Rotation 4- Good- Internal Rotation 4- Good- Left Flexion 5 Normal Extension 5 Normal Abduction (C5) 5 Normal Adduction 5 Normal External Rotation 5 Normal Internal Rotation 5 Normal PT-OP-Q Treatments Start: 09/24/20 08:05 Freq: Status: Active Protocol: Document 11/05/20 09:39 (Rec: 11/05/20 10:34 [id number]) Therapeutic Exercises Supine Exercises pec stretch Supine Exercise Name on foam roller Reps/Minutes 3 mins bicep curls Side right Reps/Minutes 10 x2 Comments cues on scap retraction shoulder ER Equipment Used PVC Reps/Minutes 10 x 2 Comments R= 25% ROM less than L Standing Exercises shoulder ER Side bilateral Equipment Used level 1 band Reps/Minutes 10 x 2 Comments no pain Manual Therapy Treatment Soft Tissue Mobilization RTC Mobilization Type Myofascial Release,Sustained Pressure,Trigger Point Release Intensity/Depth Moderate Body Position Sidelying Comments minimal tenderness at teresminor pecs Body Location minor and major Mobilization Type Myofascial Release,Sustained Pressure,Trigger Point Release Intensity/Depth Moderate Body Position Supine Comments increased tonicty noted today R biceps Body Location muscle belly and bicepital tendon Mobilization Type Sustained Pressure,Trigger Point Release Comments increased toncity at distal bicep Joint Mobilizations R GHJ Direction posterior glide Grade III Body Position Supine PT-OP-T Assessment and Plan Start: 09/24/20 08:05 Freq: Status: Active Protocol: Document 11/05/20 09:39 (Rec: 11/05/20 10:34 [id number]) Physical Therapy Assessment Goals night pain Impairment pt is having R shoulder pain during sleep Short Term Goal (STG) pt will be able to sleep 3x/ week without being waken up by his R shoulder pain STG Duration 5 weeks Residential Goal (LTG) pt will be able to sleep through the entire week consistently without being waken up by his R shoulder pain LTG Duration 10 weeks ROM Impairment pt shows limited ER and IR Short Term Goal (STG) pt will regain 10 degrees of ER and IR to improve his ability to reach behind his back STG Duration 5 weeks Edge Finisher Goal (LTG) pt will regain 20 degrees of ER and IR to improve his ability to reach behind his back without discomfort LTG Duration 10 weeks quickdash Impairment pt scores 61 on quickdash Short Term Goal (STG) pt will show improvements in mobility and strength to score <50 on quickdash STG Duration 5 weeks Residential Goal (LTG) pt will show improvements in mobility and strength to score <30 on quickdash LTG Duration 10 weeks Assessment Summary Assessment pt came in with shoulder soreness after having some jarring movements. However, his pain and ROM improved after manual therapy, his overall ER also improved. 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 Physical Therapy Plan Frequency and Duration Frequency of Treatment 1x/Week Duration of Treatment 10 weeks Plan of Care Start Date 09/24/20 Plan of Care End Date 12/08/20 Therapeutic Interventions Therapeutic Interventions Home Exercise Program,Joint Mobilizations,Manual Therapy, Neuromuscular Re-education, Patient/Caregiver Education, Self-Care/Home Management,Soft Tissue Mobilization,Taping, Therapeutic Activities, Therapeutic Exercises Modalities Biofeedback,Cold Pack/Ice Massage,Electric Stimulation, Hot Packs,Infrared Therapy, Iontophoresis,Traction- Mechanical,Ultrasound Next Visit Focus/Plan Next Note Type Treatment Note Next Visit Plan sleeper stretch for IR ( passive) pt doing both active review open book (active) scap retraction assisted IR and extension
--- NOTE | 2020-11-13 13:58 | PT.OTN ---
Current Diagnoses Pain in right shoulder (11/13/20) Physical Therapy Treatment Note PT-OP-A Visit Information Start: 09/24/20 08:05 Freq: Status: Active Protocol: Document 11/13/20 12:59 HH (Rec: 11/13/20 13:57 [id number]) Out-Patient Physical Therapy Visit Information Visit Information Visit Type Treatment Note Visit Start Time 13:07 Visit Stop Time 13:45 Total Visit Minutes 38 Visit Number 8/15 Number of WINDOWS SYSTEM ADMIN Visits 0 PT-OP-B Current Condition Start: 09/24/20 08:05 Freq: Status: Active Protocol: Document 09/24/20 12:46 HH (Rec: 09/24/20 13:22 [email or web address]) Current Condition History of Current Condition Onset Date Feb, 2020 Current Complaints R shoulder panic, limited ROM History of Current Condition Brennen is a 60yo male here for his R shoulder started from February, with no known injury. His pain is 4-6/10 located at anterior part of R shoulder and it radiates down to his biceps occasionally, along with tingling and numbness to R hand. Pt has been having night pain consistently which significantly affects his sleep. He notices his ROM has been getting less especially reaching behind his back. Painful but close to full range with flexion/ abduction. 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 Treatment Goals Patient/Caregiver Goals 1. To regain full ROM of his R shoulder 2. to regain full strength of his R shoulder Current Functional Impairments (Reported) Functional Limitations- ADL's pain while reaching behind his back to art/doff jacket Functional Limitations- Work/School pain with pulling motion during work. Personal Factors Other Personal Factors That May Effect HTN Therapy/Recovery PT-OP-C Subjective Start: 09/24/20 08:05 Freq: Status: Active Protocol: Document 11/13/20 12:59 HH (Rec: 11/13/20 13:57 [id number]) OP-PT Subjective Patient Comments Patient Comments I was stiff for the first few days after last session but it then opens up after. Patient Reported Progress Improving PT-OP-E Functional Tests Start: 09/24/20 08:05 Freq: Status: Active Protocol: Document 09/24/20 12:46 HH (Rec: 09/24/20 13:22 HH [email or web address]) Functional Tests Apley's Scratch Test Action 1- Left no pain, WFL Action 1- Right pain at AC joint / GHJ, 75% ROM Action 2- Left T2 Action 2- Right C7 Action 3- Left T10 Action 3- Right L3 with pain PT-OP-F Manual Assessment Start: 09/24/20 08:05 Freq: Status: Active Protocol: Document 09/24/20 12:46 (Rec: 09/24/20 13:22 [email or web address]) Manual Assessments Soft Tissue Assessment Soft Tissue Mobility Assessment significant hypertonicity at R bicep belly, long head tendon mod hypertonicity at Pecs, infraspinatus and teres minor PT-OP-J Posture/Palpation/Skin Start: 09/24/20 08:05 Freq: Status: Active Protocol: Document 09/24/20 12:46 (Rec: 09/24/20 13:22 [email or web address]) Posture Evaluation Position Standing Shoulder Posture (R) Rounded PT-OP-K Range of Motion Start: 09/24/20 08:05 Freq: Status: Active Protocol: Document 09/24/20 12:46 (Rec: 09/24/20 13:22 [email or web address]) Cervical Spine Range of Motion Cervical Spine Active Degrees Comments WFL no pain noted no neurological signs noted. Shoulder Goniometric Range of Motion Shoulder Right Active Testing Position Standing Flexion 160 Extension 35 Abduction 165 External Rotation at 90 degrees 90 Abduction Internal Rotation 65 Comments anterior shoulder pain with extension and internal rotation Left Active Shoulder ROM WFL Yes Testing Position Standing Flexion 180 Extension 40 Abduction 180 External Rotation at 90 degrees 97 Abduction Internal Rotation 80 Shoulder ROM Limitations Shoulder ROM Limitations Soft Tissue Tightness,Pain PT-OP-L Special Tests Start: 09/24/20 08:05 Freq: Status: Active Protocol: Document 09/24/20 12:46 (Rec: 09/24/20 13:22 [email or web address]) Special Tests Cervical Spine Special Tests Foraminal Compression Test Results -veB Spurling's Test Test Results -veB Shoulder Special Tests [place] Test Test Results +Ve R Grind Labrum Test Results -ve Neer Impingement Test Results +VE B AC Joint Compression Test Results -ve Drop Arm Rotator Cuff Test Results -ve [place] Bebeto Impingement Test Results +ve R Empty Can Test Results +ve R Comments slight pain noted Speed's Biceps Test Results +VE R Luna's Biceps Test Results +VE R PT-OP-M Strength Start: 09/24/20 08:05 Freq: Status: Active Protocol: Document 09/24/20 12:46 HH (Rec: 09/24/20 13:22 HH [email or web address]) Shoulder Strength Shoulder Manual Muscle Testing Right Flexion 4 Good Extension 4- Good- Abduction (C5) 4- Good- External Rotation 4- Good- Internal Rotation 4- Good- Left Flexion 5 Normal Extension 5 Normal Abduction (C5) 5 Normal Adduction 5 Normal External Rotation 5 Normal Internal Rotation 5 Normal PT-OP-Q Treatments Start: 09/24/20 08:05 Freq: Status: Active Protocol: Document 11/13/20 12:59 HH (Rec: 11/13/20 13:57 [id number]) Therapeutic Exercises Supine Exercises bicep curls Side right Reps/Minutes 10 x2 Comments cues on scap retraction Sitting Exercises shoulder ER Side right Equipment Used PVC Reps/Minutes 10 x2 Standing Exercises pec stretch Comments review shoulder extension Side bilateral Equipment Used PVC pipe Comments with scap retraction , for HEP . body blade Standing Exercise Name abd, ff at 90 degrees Side bilateral Reps/Minutes 4 mins shoulder ER Side bilateral Equipment Used level 1 band Reps/Minutes 10 x 2 Comments no pain posterior capsule stretch Standing Exercise Name R arm add and IR Side right Reps/Minutes 10 sec x5 Manual Therapy Treatment Soft Tissue Mobilization RTC Mobilization Type Myofascial Release,Sustained Pressure,Trigger Point Release Intensity/Depth Moderate Body Position Sidelying Comments minimal tenderness at teresminor pecs Body Location minor and major Mobilization Type Myofascial Release,Sustained Pressure,Trigger Point Release Intensity/Depth Moderate Body Position Supine Comments reduced tonicty noted today R biceps Body Location muscle belly and bicepital tendon Mobilization Type Sustained Pressure,Trigger Point Release Comments tonicity at long head bicep tendon PT-OP-T Assessment and Plan Start: 09/24/20 08:05 Freq: Status: Active Protocol: Document 11/13/20 12:59 HH (Rec: 11/13/20 13:57 [id number]) Physical Therapy Assessment Goals night pain Impairment pt is having R shoulder pain during sleep Short Term Goal (STG) pt will be able to sleep 3x/ week without being waken up by his R shoulder pain STG Duration 5 weeks Detention Goal (LTG) pt will be able to sleep through the entire week consistently without being waken up by his R shoulder pain LTG Duration 10 weeks ROM Impairment pt shows limited ER and IR Short Term Goal (STG) pt will regain 10 degrees of ER and IR to improve his ability to reach behind his back STG Duration 5 weeks Detention Goal (LTG) pt will regain 20 degrees of ER and IR to improve his ability to reach behind his back without discomfort LTG Duration 10 weeks quickdash Impairment pt scores 61 on quickdash Short Term Goal (STG) pt will show improvements in mobility and strength to score <50 on quickdash STG Duration 5 weeks Detention Goal (LTG) pt will show improvements in mobility and strength to score <30 on quickdash LTG Duration 10 weeks Assessment Summary Assessment Pt's ROM is improving, Scratch test with R - T2 and T12. Added shoulder extension with scap retraction to HEP. Pt eneida session well. Physical Therapy Plan Frequency and Duration Frequency of Treatment 1x/Week Duration of Treatment 10 weeks Plan of Care Start Date 09/24/20 Plan of Care End Date 12/08/20 Therapeutic Interventions Therapeutic Interventions Home Exercise Program,Joint Mobilizations,Manual Therapy, Neuromuscular Re-education, Patient/Caregiver Education, Self-Care/Home Management,Soft Tissue Mobilization,Taping, Therapeutic Activities, Therapeutic Exercises Modalities Biofeedback,Cold Pack/Ice Massage,Electric Stimulation, Hot Packs,Infrared Therapy, Iontophoresis,Traction- Mechanical,Ultrasound Next Visit Focus/Plan Next Note Type Treatment Note Next Visit Plan sleeper stretch for IR ( passive) pt doing both active review open book (active) scap retraction assisted IR and extension
--- NOTE | 2020-11-26 09:03 | PT.OTN ---
Current Diagnoses Pain in right shoulder (11/26/20) Physical Therapy Treatment Note PT-OP-A Visit Information Start: 09/24/20 08:05 Freq: Status: Active Protocol: Document 11/26/20 08:13 HH (Rec: 11/26/20 09:03 [id number]) Out-Patient Physical Therapy Visit Information Visit Information Visit Type Treatment Note Visit Start Time 08:15 Visit Stop Time 09:00 Total Visit Minutes 45 Visit Number 01/22 Number of BILL BOARD POSTER Visits 0 PT-OP-B Current Condition Start: 09/24/20 08:05 Freq: Status: Active Protocol: Document 09/24/20 12:46 HH (Rec: 09/24/20 13:22 [email or web address]) Current Condition History of Current Condition Onset Date Feb, 2020 Current Complaints R shoulder panic, limited ROM History of Current Condition Brennen is a 60yo male here for his R shoulder started from February, with no known injury. His pain is 4-6/10 located at anterior part of R shoulder and it radiates down to his biceps occasionally, along with tingling and numbness to R hand. Pt has been having night pain consistently which significantly affects his sleep. He notices his ROM has been getting less especially reaching behind his back. Painful but close to full range with flexion/ abduction. 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 Treatment Goals Patient/Caregiver Goals 1. To regain full ROM of his R shoulder 2. to regain full strength of his R shoulder Current Functional Impairments (Reported) Functional Limitations- ADL's pain while reaching behind his back to art/doff jacket Functional Limitations- Work/School pain with pulling motion during work. Personal Factors Other Personal Factors That May Effect HTN Therapy/Recovery PT-OP-C Subjective Start: 09/24/20 08:05 Freq: Status: Active Protocol: Document 11/26/20 08:13 HH (Rec: 11/26/20 09:03 [id number]) OP-PT Subjective Patient Comments Patient Comments I had a little setback cause i ran my shoulder into a wall. So andrei been getting sore since then. However, andrei been sleeping fine. Patient Reported Progress Same PT-OP-E Functional Tests Start: 09/24/20 08:05 Freq: Status: Active Protocol: Document 09/24/20 12:46 HH (Rec: 09/24/20 13:22 [email or web address]) Functional Tests Apley's Scratch Test Action 1- Left no pain, WFL Action 1- Right pain at AC joint / GHJ, 75% ROM Action 2- Left T2 Action 2- Right C7 Action 3- Left T10 Action 3- Right L3 with pain PT-OP-F Manual Assessment Start: 09/24/20 08:05 Freq: Status: Active Protocol: Document 09/24/20 12:46 (Rec: 09/24/20 13:22 [email or web address]) Manual Assessments Soft Tissue Assessment Soft Tissue Mobility Assessment significant hypertonicity at R bicep belly, long head tendon mod hypertonicity at Pecs, infraspinatus and teres minor PT-OP-J Posture/Palpation/Skin Start: 09/24/20 08:05 Freq: Status: Active Protocol: Document 09/24/20 12:46 (Rec: 09/24/20 13:22 [email or web address]) Posture Evaluation Position Standing Shoulder Posture (R) Rounded PT-OP-K Range of Motion Start: 09/24/20 08:05 Freq: Status: Active Protocol: Document 09/24/20 12:46 (Rec: 09/24/20 13:22 [email or web address]) Cervical Spine Range of Motion Cervical Spine Active Degrees Comments WFL no pain noted no neurological signs noted. Shoulder Goniometric Range of Motion Shoulder Right Active Testing Position Standing Flexion 160 Extension 35 Abduction 165 External Rotation at 90 degrees 90 Abduction Internal Rotation 65 Comments anterior shoulder pain with extension and internal rotation Left Active Shoulder ROM WFL Yes Testing Position Standing Flexion 180 Extension 40 Abduction 180 External Rotation at 90 degrees 97 Abduction Internal Rotation 80 Shoulder ROM Limitations Shoulder ROM Limitations Soft Tissue Tightness,Pain PT-OP-L Special Tests Start: 09/24/20 08:05 Freq: Status: Active Protocol: Document 09/24/20 12:46 (Rec: 09/24/20 13:22 [email or web address]) Special Tests Cervical Spine Special Tests Foraminal Compression Test Results -veB Spurling's Test Test Results -veB Shoulder Special Tests [place] Test Test Results +Ve R Grind Labrum Test Results -ve Neer Impingement Test Results +VE B AC Joint Compression Test Results -ve Drop Arm Rotator Cuff Test Results -ve Altamirano Bebeto Impingement Test Results +ve R Empty Can Test Results +ve R Comments slight pain noted Speed's Biceps Test Results +VE R Yerbrianna's Biceps Test Results +VE R PT-OP-M Strength Start: 09/24/20 08:05 Freq: Status: Active Protocol: Document 09/24/20 12:46 HH (Rec: 09/24/20 13:22 [email or web address]) Shoulder Strength Shoulder Manual Muscle Testing Right Flexion 4 Good Extension 4- Good- Abduction (C5) 4- Good- External Rotation 4- Good- Internal Rotation 4- Good- Left Flexion 5 Normal Extension 5 Normal Abduction (C5) 5 Normal Adduction 5 Normal External Rotation 5 Normal Internal Rotation 5 Normal PT-OP-Q Treatments Start: 09/24/20 08:05 Freq: Status: Active Protocol: Document 11/26/20 08:13 HH (Rec: 11/26/20 09:03 [id number]) Therapeutic Exercises Supine Exercises scap punch Reps/Minutes 10 x2 Comments slight discomfort on the way down pec stretch Supine Exercise Name on foam roller Reps/Minutes 3 mins bicep curls Side right Equipment Used 4 lbs DB Reps/Minutes 10x2 Comments cues on scap retraction, towel under elbow Standing Exercises shoulder extension Standing Exercise Name added IR Side bilateral Equipment Used PVC pipe Comments with scap retraction , for HEP . posterior capsule stretch Standing Exercise Name R arm Side right Reps/Minutes 10 sec x5 Manual Therapy Treatment Soft Tissue Mobilization RTC Mobilization Type Myofascial Release,Sustained Pressure,Trigger Point Release Intensity/Depth Moderate Body Position Sidelying Comments minimal tenderness at teresminor Joint Mobilizations R GHJ Direction posterior glide, inf, ant Grade III Body Position Supine PT-OP-T Assessment and Plan Start: 09/24/20 08:05 Freq: Status: Active Protocol: Document 11/26/20 08:13 (Rec: 11/26/20 09:03 [id number]) Physical Therapy Assessment Goals night pain Impairment pt is having R shoulder pain during sleep Short Term Goal (STG) pt will be able to sleep 3x/ week without being waken up by his R shoulder pain STG Duration 5 weeks Transformation Architect Goal (LTG) pt will be able to sleep through the entire week consistently without being waken up by his R shoulder pain LTG Duration 10 weeks ROM Impairment pt shows limited ER and IR Short Term Goal (STG) pt will regain 10 degrees of ER and IR to improve his ability to reach behind his back STG Duration 5 weeks Transformation Architect Goal (LTG) pt will regain 20 degrees of ER and IR to improve his ability to reach behind his back without discomfort LTG Duration 10 weeks quickdash Impairment pt scores 61 on quickdash Short Term Goal (STG) pt will show improvements in mobility and strength to score <50 on quickdash STG Duration 5 weeks Transformation Architect Goal (LTG) pt will show improvements in mobility and strength to score <30 on quickdash LTG Duration 10 weeks Assessment Summary Assessment pt had a setback last week at work by hitting his shoulder accidentally. He has some irritation and decreased ROM to reach behind his back. However, pt shows improvements at the end of session with less pain. He is able to tolerate shoulder ext with IR but cues with scap retraction. Physical Therapy Plan Frequency and Duration Frequency of Treatment 1x/Week Duration of Treatment 10 weeks Plan of Care Start Date 09/24/20 Plan of Care End Date 12/08/20 Therapeutic Interventions Therapeutic Interventions Home Exercise Program,Joint Mobilizations,Manual Therapy, Neuromuscular Re-education, Patient/Caregiver Education, Self-Care/Home Management,Soft Tissue Mobilization,Taping, Therapeutic Activities, Therapeutic Exercises Modalities Biofeedback,Cold Pack/Ice Massage,Electric Stimulation, Hot Packs,Infrared Therapy, Iontophoresis,Traction- Mechanical,Ultrasound Next Visit Focus/Plan Next Note Type Treatment Note Next Visit Plan sleeper stretch for IR ( passive) pt doing both active review open book (active) scap retraction assisted IR and extension
--- NOTE | 2020-12-03 09:06 | PT.OPPOC ---
Physical, Occupational & Speech Therapy At [facility] Current Diagnoses Pain in right shoulder (12/03/20) Visit Care Team Role Provider Type BEATA Joyce Attending Provider Advanced Natural Resources Professor Family Provider Primary Care Provider Referring Provider Specialty: Family Practice Address: [address] [place] [address] [place], [address] Email: Plan Of Care PT-OP-T Assessment and Plan Start: 09/24/20 08:05 Freq: Status: Active Protocol: Document 12/03/20 08:11 (Rec: 12/03/20 09:05 [id number]) Physical Therapy Assessment Goals night pain Impairment pt is having R shoulder pain during sleep Short Term Goal (STG) pt will be able to sleep 3x/ week without being waken up by his R shoulder pain STG Duration 5 weeks Detention Goal (LTG) 12/03 goal met pt is able to sleep through the entire week consistently without being waken up by his R shoulder pain LTG Duration 10 weeks ROM Impairment pt shows limited ER and IR Short Term Goal (STG) pt will regain 10 degrees of ER and IR to improve his ability to reach behind his back STG Duration 5 weeks Detention Goal (LTG) 12/03 pt will regain 20 degrees of ER and IR to improve his ability to reach behind his back without discomfort LTG Duration 10 weeks quickdash Impairment pt scores 61 on quickdash Short Term Goal (STG) 12/03 pt will show improvements in mobility and strength to score <50 on quickdash STG Duration 5 weeks Head Start Director Goal (LTG) 12/03 goal met pt scores 32 on quickdash pt shows improvements in mobility and strength to score <30 on quickdash LTG Duration 10 weeks Assessment Summary Assessment pt reports his average pain without lifting = 2/10, but 4- 6/10 during working. No discomfort while sleeping. His progress is somewhat affected d/t his nature of the job which involves lots of lifting . Consolidated his HEP today with bicep and RTC strengthening. He was able to eneida them well with good body mechanics. Pt will benefit 1 more month of skilled therapy for overall shoulder strengthening so he can complete his work tasks without discomfort. Physical Therapy Plan Frequency and Duration Frequency of Treatment 1x/Week Duration of Treatment 6 weeks Plan of Care Start Date 12/03/20 Plan of Care End Date 01/17/21 Therapeutic Interventions Therapeutic Interventions Home Exercise Program,Joint Mobilizations,Manual Therapy, Neuromuscular Re-education, Patient/Caregiver Education, Self-Care/Home Management,Soft Tissue Mobilization,Taping, Therapeutic Activities, Therapeutic Exercises Modalities Biofeedback,Cold Pack/Ice Massage,Electric Stimulation, Hot Packs,Infrared Therapy, Iontophoresis,Traction- Mechanical,Ultrasound Next Visit Focus/Plan Next Note Type Treatment Note Next Visit Plan sleeper stretch for IR ( passive) pt doing both active review open book (active) scap retraction assisted IR and extension Plan of Care Dates Plan of Care Start Date 12/03/20 Plan of Care End Date 01/17/21 Electronically Signed by: Kaye Kennedy PT 12/03/20905 Please Sign and Return: I have reviewed this Plan of Care and certify that the skilled therapy services above are required to meet the patient?s needs. Physician Signature Date Printed Name and Credentials Clinical Instructor Signature Printed Name and Credentials
--- NOTE | 2020-12-03 09:06 | PT.OTN ---
Current Diagnoses Pain in right shoulder (12/03/20) Physical Therapy Treatment Note PT-OP-A Visit Information Start: 09/24/20 08:05 Freq: Status: Active Protocol: Document 12/03/20 08:11 (Rec: 12/03/20 09:05 [id number]) Out-Patient Physical Therapy Visit Information Visit Information Visit Type Progress Note Visit Start Time 08:16 Visit Stop Time 09:00 Total Visit Minutes 44 Visit Number 02/21 Number of DIRECTOR OF DIGITAL PLATFORMS Visits 0 PT-OP-B Current Condition Start: 09/24/20 08:05 Freq: Status: Active Protocol: Document 09/24/20 12:46 HH (Rec: 09/24/20 13:22 [email or web address]) Current Condition History of Current Condition Onset Date Feb, 2020 Current Complaints R shoulder panic, limited ROM History of Current Condition Brennen is a 60yo male here for his R shoulder started from February, with no known injury. His pain is 4-6/10 located at anterior part of R shoulder and it radiates down to his biceps occasionally, along with tingling and numbness to R hand. Pt has been having night pain consistently which significantly affects his sleep. He notices his ROM has been getting less especially reaching behind his back. Painful but close to full range with flexion/ abduction. 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 Treatment Goals Patient/Caregiver Goals 1. To regain full ROM of his R shoulder 2. to regain full strength of his R shoulder Current Functional Impairments (Reported) Functional Limitations- ADL's pain while reaching behind his back to art/doff jacket Functional Limitations- Work/School pain with pulling motion during work. Personal Factors Other Personal Factors That May Effect HTN Therapy/Recovery PT-OP-C Subjective Start: 09/24/20 08:05 Freq: Status: Active Protocol: Document 12/03/20 08:11 HH (Rec: 12/03/20 09:05 [id number]) OP-PT Subjective Patient Comments Patient Comments I was getting really sore while doing a pumping motion at work and i had to switch arm Patient Reported Progress Same Patient Questionnaires Quick Dash- Upper Extremity Quick Dash UE Score 32 Quick Dash UE Impairment 20 to 39% Impaired (Score 20- 39) PT-OP-E Functional Tests Start: 09/24/20 08:05 Freq: Status: Active Protocol: Document 09/24/20 12:46 (Rec: 09/24/20 13:22 [email or web address]) Functional Tests Apley's Scratch Test Action 1- Left no pain, WFL Action 1- Right pain at AC joint / GHJ, 75% ROM Action 2- Left T2 Action 2- Right C7 Action 3- Left T10 Action 3- Right L3 with pain PT-OP-F Manual Assessment Start: 09/24/20 08:05 Freq: Status: Active Protocol: Document 09/24/20 12:46 HH (Rec: 09/24/20 13:22 [email or web address]) Manual Assessments Soft Tissue Assessment Soft Tissue Mobility Assessment significant hypertonicity at R bicep belly, long head tendon mod hypertonicity at Pecs, infraspinatus and teres minor PT-OP-J Posture/Palpation/Skin Start: 09/24/20 08:05 Freq: Status: Active Protocol: Document 09/24/20 12:46 (Rec: 09/24/20 13:22 [email or web address]) Posture Evaluation Position Standing Shoulder Posture (R) Rounded PT-OP-K Range of Motion Start: 09/24/20 08:05 Freq: Status: Active Protocol: Document 12/03/20 08:11 HH (Rec: 12/03/20 09:05 [id number]) Shoulder Goniometric Range of Motion Shoulder Right Active Testing Position Standing Flexion 167 Extension 55 Abduction 165 External Rotation at 90 degrees 90 Abduction Internal Rotation 85 Comments anterior shoulder pain with extension and internal rotation Left Active Shoulder ROM WFL Yes Testing Position Standing Flexion 180 Extension 40 Abduction 180 External Rotation at 90 degrees 97 Abduction Internal Rotation 80 PT-OP-L Special Tests Start: 09/24/20 08:05 Freq: Status: Active Protocol: Document 09/24/20 12:46 (Rec: 09/24/20 13:22 [email or web address]) Special Tests Cervical Spine Special Tests Foraminal Compression Test Results -veB Spurling's Test Test Results -veB Shoulder Special Tests [place] Test Test Results +Ve R Grind Labrum Test Results -ve Neer Impingement Test Results +VE B AC Joint Compression Test Results -ve Drop Arm Rotator Cuff Test Results -ve Altamirano Bebeto Impingement Test Results +ve R Empty Can Test Results +ve R Comments slight pain noted Speed's Biceps Test Results +VE R Luna's Biceps Test Results +VE R PT-OP-M Strength Start: 09/24/20 08:05 Freq: Status: Active Protocol: Document 12/03/20 08:11 (Rec: 12/03/20 09:05 [id number]) Shoulder Strength Shoulder Manual Muscle Testing Right Flexion 4+ Good+ Extension 4 Good Abduction (C5) 4 Good External Rotation 4+ Good+ Internal Rotation 4- Good- Left Flexion 5 Normal Extension 5 Normal Abduction (C5) 5 Normal Adduction 5 Normal External Rotation 5 Normal Internal Rotation 5 Normal PT-OP-Q Treatments Start: 09/24/20 08:05 Freq: Status: Active Protocol: Document 12/03/20 08:11 (Rec: 12/03/20 09:05 [id number]) Therapeutic Exercises Standing Exercises bicep stretch Side right Reps/Minutes 15 sec hold x 5 Comments for HEP bicep curls Equipment Used level 1 band Reps/Minutes 8 x2 Comments for HEP shoulder abd Standing Exercise Name 0-85 degrees Side right Equipment Used level 1 band Comments for HEP shoulder extension 2 Standing Exercise Name with extended elbows Side right Equipment Used level 1 band Comments for HEP shoulder extension Standing Exercise Name added IR Side bilateral Equipment Used PVC pipe Comments with scap retraction , for HEP . shoulder ER Side bilateral Equipment Used level 1 band Reps/Minutes 10 x 2 Comments no pain posterior capsule stretch Standing Exercise Name R arm Side right Reps/Minutes 10 sec x5 Manual Therapy Treatment Joint Mobilizations R GHJ Direction posterior glide, inf, ant Grade III Body Position Supine PT-OP-T Assessment and Plan Start: 09/24/20 08:05 Freq: Status: Active Protocol: Document 12/03/20 08:11 (Rec: 12/03/20 09:05 [id number]) Physical Therapy Assessment Goals night pain Impairment pt is having R shoulder pain during sleep Short Term Goal (STG) pt will be able to sleep 3x/ week without being waken up by his R shoulder pain STG Duration 5 weeks Vault Custodian Goal (LTG) 12/03 goal met pt is able to sleep through the entire week consistently without being waken up by his R shoulder pain LTG Duration 10 weeks ROM Impairment pt shows limited ER and IR Short Term Goal (STG) pt will regain 10 degrees of ER and IR to improve his ability to reach behind his back STG Duration 5 weeks Skilled Nursing Goal (LTG) 12/03 pt will regain 20 degrees of ER and IR to improve his ability to reach behind his back without discomfort LTG Duration 10 weeks quickdash Impairment pt scores 61 on quickdash Short Term Goal (STG) 12/03 pt will show improvements in mobility and strength to score <50 on quickdash STG Duration 5 weeks Vault Custodian Goal (LTG) 12/03 goal met pt scores 32 on quickdash pt shows improvements in mobility and strength to score <30 on quickdash LTG Duration 10 weeks Assessment Summary Assessment pt reports his average pain without lifting = 2/10, but 4- 6/10 during working. No discomfort while sleeping. His progress is somewhat affected d/t his nature of the job which involves lots of lifting . Consolidated his HEP today with bicep and RTC strengthening. He was able to eneida them well with good body mechanics. Pt will benefit 1 more month of skilled therapy for overall shoulder strengthening so he can complete his work tasks without discomfort. Physical Therapy Plan Frequency and Duration Frequency of Treatment 1x/Week Duration of Treatment 6 weeks Plan of Care Start Date 12/03/20 Plan of Care End Date 01/17/21 Therapeutic Interventions Therapeutic Interventions Home Exercise Program,Joint Mobilizations,Manual Therapy, Neuromuscular Re-education, Patient/Caregiver Education, Self-Care/Home Management,Soft Tissue Mobilization,Taping, Therapeutic Activities, Therapeutic Exercises Modalities Biofeedback,Cold Pack/Ice Massage,Electric Stimulation, Hot Packs,Infrared Therapy, Iontophoresis,Traction- Mechanical,Ultrasound Next Visit Focus/Plan Next Note Type Treatment Note Next Visit Plan sleeper stretch for IR ( passive) pt doing both active review open book (active) scap retraction assisted IR and extension
--- NOTE | 2021-01-30 12:02 | PT.OPDS ---
Current Diagnoses Pain in right shoulder (12/03/20) Visit Care Team Role Provider Type BEATA Joyce Attending Provider Advanced System Support Specialist Family Provider Primary Care Provider Referring Provider Specialty: Family Practice Address: [address] [place] [address], [facility] Email: [email or web address] Visit Number Visit Number 02/21 Discharge Summary PT-OP-T Assessment and Plan Start: 09/24/20 08:05 Freq: Status: Active Protocol: Document 01/30/21 12:01 (Rec: 01/30/21 12:02 [email or web address]) Physical Therapy Plan Discharge Physical Therapy Discharge Reasons No Longer Attending PT Discharge Comments pt is no longer attending PT. DC
== END 2021-01-30 13:03 | disposition home or self-care (01) ==
LOC: PHYS 08:15
PROVIDERS: Family Provider Internal Medicine; PCP Internal Medicine; Referring Provider Internal Medicine; Visit Provider Internal Medicine
DX: M25.511 Pain in right shoulder (principal)
CPT/HCPCS: 97110; 97140; 97161